=== PATIENT | male | born 1980 | race Two or more races ===

== ENCOUNTER 2018-08-27 22:02 | Emergency (ER) | payer SELFPAY ==
[~2018-08-27] VITALS: Ht 170.2 cm; Wt 66.0 kg
[2018-08-28] MEDS ORDERED: ACETAMINOPHEN 325MG TABLET PO ONE (00:15)
[2018-08-28] MEDS ORDERED: CYCLOBENZAPRINE 10MG TABLET PO ONE (00:15)
[2018-08-28 01:15] VITALS: BP 122/77
== END 2018-08-28 01:36 | disposition home or self-care (01) ==
LOC: ER 22:02
DX: M54.2 Cervicalgia (principal); M54.9 Dorsalgia, unspecified; F17.200 Nicotine dependence, unspecified, uncomplicated
CPT/HCPCS: 72100; 99283